=== PATIENT | male | born 1985 | race Caucasian/White ===

== ENCOUNTER 2017-03-30 12:32 | Emergency (ER) | payer OTHER ==
[2017-03-30] MEDS ORDERED: DEXAMETHASONE 10 MG/ML VIAL PO STA (13:42)
[2017-03-30] MEDS ORDERED: KETOROLAC 60 MG/2 ML VIAL IM STA (13:42)
--- NOTE | 2017-03-30 13:44 | ED Physician Documentation ---
PD HPI BACK PAIN - Stated complaint Stated Complaint: BACK PX - Chief complaint Chief Complaint: Back Pain - History obtained from History obtained from: Patient - History of Present Illness Timing - onset: Today Timing - duration: Hours Timing - details: Abrupt onset, Still present Location: Lower, Right Quality: Pain, Spasm, Sharp Associated symptoms: No: Fever, Weakness, Numbness, Incontinent of urine, Unable to urinate, Hematuria, Incontinent of stool Improves with: Rest, Position Worsened by: Movement Contributing factors: Lifting Similar symptoms before: Has not had sx before Recently seen: Not recently seen - Additional information Additional information: 31-year-old male with no prior history has developed acute right lower lumbar 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 He states that he was feeling well and when he picked up his 2-year-old he had immediate and sharp spasm in his back. He has not been able to get control of the his pain. He denies any loading injury denies any abnormal positioning or prolonged carrying or handling of objects with the lever arm. 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 Review of Systems Constitutional: denies: Fever Ears: denies: Ear pain Nose: denies: Congestion Throat: denies: Sore throat Cardiac: denies: Chest pain / pressure, Palpitations Respiratory: denies: Dyspnea, Cough GI: denies: Abdominal Pain, Nausea, Vomiting : denies: Dysuria, Frequency Skin: denies: Rash Musculoskeletal: reports: Back pain. denies: Neck pain, Extremity pain Neurologic: denies: Generalized weakness, Focal weakness, Numbness PD PAST MEDICAL HISTORY - Present Medications Home Medications: Ambulatory Orders Medication Instructions Recorded Confirmed Cyclobenzaprine [Flexeril] 10 mg PO TID PRN #20 tablet 03/30/17 HYDROcod/ACETAM 5/325 [[place] 5/325] 1 - 2 ea PO Q6H PRN #15 tablet 03/30/17 - Allergies Allergies/Adverse Reactions: Allergies Allergy/AdvReac Type Severity Reaction Status Date / Time No Known Drug Allergies Allergy Verified 03/30/17 12:38 PD ED PE NORMAL - Vitals Vital signs reviewed: Yes (Hypertensive) - General General: Alert and oriented X 3, No acute distress, Well developed/nourished - HEENT HEENT: Atraumatic, PERRL, EOMI - Neck Neck: Supple, no meningeal sign, No bony TTP - Cardiac Cardiac: RRR, No murmur - Respiratory Respiratory: No respiratory distress, Clear bilaterally - Abdomen Abdomen: Soft, Non tender, Non distended - Back Back: No CVA TTP, No spinal TTP, Other (There is marked tenderness to the right lower lumbar paraspinous muscles over the sacrum. There is no extension of the pain into the sciatic notch.) - Derm Derm: Normal color, Warm and dry, No rash - Extremities Extremities: No deformity, No edema - Neuro Neuro: No motor deficit, No sensory deficit, Normal speech - Psych Psych: Normal mood, Normal affect Results - Vitals Vitals: Vital Signs - 24 hr 03/30/17 12:36 Temperature 36.3 C L Heart Rate 89 Respiratory 18 Rate Blood Pressure 131/85 H O2 Saturation 98 Oxygen O2 Source Room air Procedures - IVC sono (time) 1330 Bedside IVC sono: IVC measures (cm) (1.67), Euvolemia PD MEDICAL DECISION MAKING - ED course Complexity details: reviewed results, re-evaluated patient, considered differential, d/w patient ED course: 31-year-old male with acute lumbar spasm has only risk factor of prolonged positioning in a seated position at work. He has spasm in the lower lumbar paraspinous muscles at the insertion to the sacrum. He is not dehydrated and he has no other specific illness. Here in the emergency department he is administered dexamethasone 10 mg orally and Toradol 60 mg IM. Departure - Departure Disposition: 01 Home, Self Care Clinical Impression: Back muscle spasm Condition: Stable Instructions: ED Spasm Back No Trauma Follow-Up: [facility] [Provider Group] Prescriptions: Cyclobenzaprine [Flexeril] 10 mg PO TID PRN #20 tablet PRN Reason: Spasms HYDROcod/ACETAM 5/325 [[place] 5/325] 1 - 2 ea PO Q6H PRN #15 tablet PRN Reason: Pain Comments: Today in the Emergency Department your blood pressure was elevated. This can happen from the stress of the visit itself, from a current illness or circumstance or from uncontrolled hypertension. If you take blood pressure medications take your usual mediations, have your blood pressure re-checked in an appropriate setting and follow up any elevation with your primary care doctor.
[2017-03-30] MEDS ORDERED: CHERRY SYRUP 10 ML UDC PO ONE (13:51)
[2017-03-30] MEDS ORDERED: KETOROLAC 60 MG/2 ML VIAL ONE (13:51)
[2017-03-30] MEDS ORDERED: DEXAMETHASONE 10 MG/ML VIAL ONE (13:51)
[2017-03-30 14:08] VITALS: BP 127/72
== END 2017-03-30 14:15 | disposition home or self-care (01) ==
LOC: ED 12:32
DX: M62.830 Muscle spasm of back (principal); M54.5 Low back pain; R03.0 Elevated blood-pressure reading, without diagnosis of hypertension
CPT/HCPCS: 96372; 99283; A9270

== ENCOUNTER 2018-08-23 10:47 | Outpatient (CLI) | payer OTHER | END 2018-08-23 10:48 | disposition home or self-care (01) | LOC: SC 10:47 | PROVIDERS: ATTEND Internal Medicine Pulmonary Disease | DX: G47.10 Hypersomnia, unspecified (principal); F51.12 Insufficient sleep syndrome; G47.26 Circadian rhythm sleep disorder, shift work type; R68.3 Clubbing of fingers | CPT/HCPCS: 99203; 99212 ==

== ENCOUNTER 2018-09-12 19:07 | Outpatient (CLI) | payer OTHER | END 2018-09-12 19:08 | disposition home or self-care (01) | LOC: SC 19:07 | PROVIDERS: ATTEND Internal Medicine Pulmonary Disease | DX: G47.33 Obstructive sleep apnea (adult) (pediatric) (principal) | CPT/HCPCS: 95810 ==

== ENCOUNTER 2018-10-25 12:59 | Outpatient (CLI) | payer OTHER | END 2018-10-25 13:00 | disposition home or self-care (01) | LOC: SC 12:59 | PROVIDERS: ATTEND Internal Medicine Pulmonary Disease | DX: G47.33 Obstructive sleep apnea (adult) (pediatric) (principal) | CPT/HCPCS: 99212; 99213 ==